=== PATIENT | female | born 1985 | race Caucasian/White ===

== ENCOUNTER 2018-01-26 09:45 | Emergency (ER) | payer OTHER, SELFPAY ==
--- NOTE | 2018-01-26 09:45 | DT_ITS ---
This patient was seen during an EMR downtime January 21, 2018 - January 28, 2018. This patient may have a combination of paper and electronic documentation or all paper documentation. All documentation is viewable within the e-chart portion of [facility] for each patient visit.
== END 2018-01-26 10:33 | disposition home or self-care (01) ==
LOC: ED 01-27 12:40
PROVIDERS: Emergency Provider Emergency Medicine
DX: M43.6 Torticollis (principal); L40.50 Arthropathic psoriasis, unspecified; Z79.899 Other long term (current) drug therapy
CPT/HCPCS: 99282